=== PATIENT | male | born 1985 | race Caucasian/White ===

== ENCOUNTER 2019-03-17 15:33 | Outpatient (CLI) | payer OTHER ==
--- NOTE | 2019-03-17 16:25 | RAD ---
6 views of the cervical spine: 03/17/2019 COMPARISON: None HISTORY: Neck pain FINDINGS: The open-mouth odontoid view demonstrates a normal-appearing dens and C1-2 articulation. Ex tension imaging demonstrates normal cervical vertebral body height and alignment. C6-7 and C7-T1 levels are not well assessed on the flexion or extension imaging. Cervicothoracic junction appears wi thin normal limits on the swimmer's lateral view. The neutral lateral imaging demonstrates no anterolisthesis or retrolisthesis. Frontal imaging demonstrates normal cervical vertebral body height and alignment. IMPRESSION: No acute findings.
--- NOTE | 2019-03-17 16:28 | RAD ---
Lumbar spine 4 views: 03/17/2019 COMPARISON: None HISTORY: Low back pain FINDINGS: Lumbar pedicles appear intact on frontal imaging. Lateral imaging demonstrates normal lumba r vertebral body height and alignment on neutral, flexion, and extension imaging. There is a 1.2 cm calcification overlying the left upper quadrant suggesting a left renal stone. IMPRESSION: No acute osseous abnormality. 1.2 cm calcification in the left upper quadrant suggests a renal stone.
--- NOTE | 2019-03-17 17:47 | MRI ---
CERVICAL SPINE MRI WITHOUT CONTRAST: Date: 03-17-2019 Comparison: None. History: Neck pain. Technique: Multiplanar, multisequence MR imaging cervical spine without contrast. FINDINGS: Sagittal STIR imaging demonstrates no focal area of osseous marrow edema. Detailed assessment is slig htly limited secondary to motion artifact. The craniocervical junction and cervicothoracic junction appears intact. There is no significant anterolisthesis or retrolisthesis noted within the cervical spine. C2-3: No significant central canal or neural foraminal stenosis . C3-4: Mild disc space narrowing with mild disc desiccation and minimal disc bulge partially effacing the ventral thecal sac with mild central canal stenosis. No significant neural foraminal stenosis is noted on either side. C4-5: There is disc space narrowing with disc desiccation and mild disc bulge effacing the ventral th ecal sac and abutting the ventral aspect of the cord with a mild degree of central canal stenosis. Mi ld facet hypertrophy on the left. No significant neural foraminal stenosis on either side. C5-6: Mild disc space narrowing with minimal disc bulge. No significant central canal or neural anali inal stenosis. Mild left sided uncal vertebral osteophyte formation. C6-7: No significant central canal or neural foraminal stenosis. C7-T1: Mild facet and uncal vertebral osteophyte formation on the left. No significant central canal or neural foraminal stenosis. No focal area of abnormal signal intensity within the cervical cord. IMPRESSION: Mild degenerative change within the cervical spine, most prominent at C4-5. POS: [facility]
== END 2019-03-17 15:34 | disposition home or self-care (01) ==
LOC: TBSIIMAG 15:33
PROVIDERS: ATTEND Surgery
DX: M48.062 Spinal stenosis, lumbar region with neurogenic claudication (principal); M79.603 Pain in arm, unspecified; R20.2 Paresthesia of skin; M54.2 Cervicalgia; M79.606 Pain in leg, unspecified; R93.89 Abnormal findings on diagnostic imaging of other specified body structures; M47.812 Spondylosis without myelopathy or radiculopathy, cervical region
CPT/HCPCS: 72050; 72120; 72141